=== PATIENT | female | born 1970 | race American Indian/Alaskan Native ===

== ENCOUNTER 2018-01-14 18:16 | Emergency (ER) | payer SELFPAY ==
[2018-01-14 18:29] VITALS: BP 160/106
--- NOTE | 2018-01-14 18:47 | Emergency Department Report ---
Chief Complaint: Recheck/Abnormal Lab/Rx Stated Complaint: DEPRESSION/BIPOLAR Time Seen by Provider: 01/14/18 18:39 - HPI History of Present Illness: Ms. Cooper is a pleasant 47 yo female who presents with request for medication refill. She takes Abilify, Cogentin, and Seroquel. She has been without these medications for 5 months. She has had difficulty obtaining care from psychiatrist due to lack of health insurance. She receives her HTN medications at a free clinic. She denies SI or HI. She desires to have the medications for better focus. I recommended evaluation at the [facility]. I explained that ultimately she needs a mental health specialist to restart the medications. She ultimately needs to re-establish care for mental health. I did not provide refill. Medical screening exam complete. Patient is alert insightful. A&O x 4 - Exam Vital Signs: Vital Signs 01/14/18 18:25 Temperature 98.6 F Pulse Rate 94 H Respiratory 16 Rate Blood Pressure 160/106 O2 Sat by Pulse 99 Oximetry MSE screening note: Focused history and physical exam performed. Due to findings the following was ordered: ED Disposition for MSE Clinical Impression: Encounter for medical screening examination, Medication refill Disposition: Z-[id number] MED SCREENING EXAM-LEFT Is pt being admited?: No Does the pt Need Aspirin: No Condition: Stable Additional Instructions: Please call [facility] Referrals: [facility] [Outside] - 3-5 Days
== END 2018-01-14 19:21 | disposition left against medical advice (07) ==
LOC: ED 18:16
DX: F31.9 Bipolar disorder, unspecified (principal); Z00.00 Encounter for general adult medical examination without abnormal findings; Z76.0 Encounter for issue of repeat prescription; Z88.8 Allergy status to other drugs, medicaments and biological substances
CPT/HCPCS: 99282